=== PATIENT | female | born 1950 | race Caucasian/White ===

== ENCOUNTER 2017-02-22 02:11 | Outpatient (CLI) | payer MEDICARE, OTHER | END 2017-02-22 02:12 | disposition critical access hospital (66) | LOC: EMS 02:11 | PROVIDERS: ATTEND Surgery | DX: R06.02 Shortness of breath (principal) | CPT/HCPCS: A0425; A0427 ==

== ENCOUNTER 2017-02-22 02:26 | Inpatient (IN) | payer MEDICARE, OTHER ==
[2017-02-22] MEDS ORDERED: MAGNESIUM SULFATE 2 GRAM 2 GM/50 ML BAG IV ONE ×2 (02:35→04:49)
[2017-02-22] MEDS ORDERED: SODIUM CHLORIDE 0.9% 500 ML IV ONE (02:37)
[2017-02-22] MEDS ORDERED: IPRATROPIUM/ALBUTEROL 3 ML NEB INH STA (02:37)
[2017-02-22 02:59] LABS: BASOPHILS # (AUTO) 0.1 10^3/uL (0.0-0.1); BASOPHILS % (AUTO) 0.6 %; EOSINOPHILS # (AUTO) 0.2 10^3/uL (0.0-0.7); EOSINOPHILS % (AUTO) 1.7 %; HCT - HEMATOCRIT 34.4 % (37.0-47.0); HGB - HEMOGLOBIN 11.5 g/dL (12.0-16.0); LYMPHOCYTES # (AUTO) 1.5 10^3/uL (1.5-3.5); LYMPHOCYTES % (AUTO) 15.2 %; MEAN CORPUSCULAR HEMOGLOBIN 30.3 pg (27.0-31.0); MEAN CORPUSCULAR HGB CONC 33.3 g/dL (32.0-36.0); MEAN CORPUSCULAR VOLUME 91.1 fL (81.0-99.0); MEAN PLATELET VOLUME 7.7 fL (7.9-10.8); MONOCYTES # (AUTO) 0.7 10^3/uL (0.0-1.0); MONOCYTES % (AUTO) 6.7 %; NEUTROPHILS # (AUTO) 7.6 10^3/uL (1.5-6.6); NEUTROPHILS % (AUTO) 75.8 %; NUCLEATED RED BLOOD CELLS AUTO 0.1 /100WBC; RED BLOOD COUNT 3.78 10^6/uL (4.20-5.40); RED CELL DISTRIBUTION WIDTH 15.1 % (12.0-15.0)
[2017-02-22 03:06] LABS: INR 1.2 (0.8-1.2); PT - PROTHROMBIN TIME 13.6 secs (9.9-12.6)
[2017-02-22 03:08] LABS: D-DIMER 546.9 ng/mL (200.0-255.0)
[2017-02-22 03:10] LABS: ALBUMIN/GLOBULIN RATIO 1.1 (1.0-2.2); BILIRUBIN,TOTAL 0.7 mg/dL (0.2-1.0); CALCIUM 8.6 mg/dL (8.5-10.3); CREATININE 0.4 mg/dL (0.4-1.0); POTASSIUM 2.6 mmol/L (3.5-5.0); TOTAL PROTEIN 7.5 g/dL (6.7-8.2)
[2017-02-22 03:13] LABS: PARTIAL THROMBOPLASTIN TIME 26.7 secs (24.9-33.3)
[2017-02-22] MEDS ORDERED: FUROSEMIDE 40 MG/4 ML VIAL IVP STA (03:18)
[2017-02-22] MEDS ORDERED: POTASSIUM CHLOR 20 MEQ/100 ML 20 MEQ/100 ML BAG IV ONE (03:23)
--- NOTE | 2017-02-22 03:25 | XRAY Preliminary Report ---
Exam: XR Chest 1 View IMPRESSION: 1. Moderate CHF pattern, with progression from the prior exam. 2. Additional right perihilar opacity, probably confluent pulmonary edema. Infection difficult to exc lude with certainty. [facility] SITE ID: [id number]
[2017-02-22] MEDS ORDERED: FUROSEMIDE 40 MG/4 ML VIAL ONE (03:28)
[2017-02-22] MEDS ORDERED: POTASSIUM CHLOR 10 MEQ/100 ML 10 MEQ/100 ML BAG IV ONE ×3 (03:34→04:49)
--- NOTE | 2017-02-22 03:36 | XRAY Report ---
EXAM: CHEST RADIOGRAPHY EXAM DATE: 02/22/2017 02:51 AM. CLINICAL HISTORY: Shortness of breath, nonproductive cough for 5 days. COMPARISON: 02/05/2017, 02/06/2017. TECHNIQUE: 1 view. FINDINGS: Lungs/Pleura: Relative diffuse interstitial abnormality with progression from the prior exam. Small a mount of fluid tracking within the right minor fissure. Right perihilar and basilar airspace disease. Medium-sized left-sided pleural effusion also tracking laterally. Moderate biapical pleural thickeni ng/scarring. Mediastinum: New moderate enlargement of the cardiac silhouette. Other: None. IMPRESSION: 1. Moderate CHF pattern, with progression from the prior exam. 2. Additional right perihilar opacity, probably confluent pulmonary edema. Infection difficult to exc lude with certainty. [facility] Referring Provider Line: [phone] SITE ID: [id number]
--- NOTE | 2017-02-22 03:40 | ED Physician Documentation ---
PD HPI DYSPNEA - Stated complaint Stated Complaint: SOA - Chief complaint Chief Complaint: Resp - History obtained from History obtained from: Patient, EMS - History of Present Illness Timing - onset: How many days ago (2) Timing - details: Gradual onset, Still present Inciting event(s): Exercise Improved by: O2, Inhaler/neb Worsened by: Exertion, Laying flat Associated symptoms: Cough, Diaphoresis. No: Fever, Wheezing, Chest pain / discomfort, Anxiety Similar symptoms before: Work up / diagnostics, Treatment Recently seen: Emergency Dept, Admitted - Additional information Additional information: Patient is a 66 year old female with a history of copd who was recently diagnosed with chf who is presenting to the emergency department for shortness of breath. According to patient and ems patient was admitted a few weeks ago and spent a couple of days in the hospital. patient states that for the last few days she has been feeling more and more short of breath. patient states that this afternoon she over exerted herself and she has not been able to catch her breath. Review of Systems Constitutional: denies: Fever, Chills Eyes: denies: Decreased vision, Photophobia Ears: reports: Reviewed and negative Nose: denies: Congestion, Epistaxis Throat: denies: Sore throat Cardiac: reports: Pedal edema. denies: Chest pain / pressure, Palpitations Respiratory: reports: Dyspnea. denies: Cough, Wheezing GI: denies: Nausea, Vomiting : denies: Dysuria, Frequency, Hesitancy Skin: denies: Rash, Lesions Musculoskeletal: reports: Extremity swelling. denies: Extremity pain Neurologic: denies: Generalized weakness, Focal weakness, Numbness Psychiatric: denies: Depressed, Suicidal Immunocompromised: denies: Immunocompromised PD PAST MEDICAL HISTORY - Past Medical History Past Medical History: Yes Cardiovascular: Congestive heart failure Respiratory: Asthma, COPD Endocrine/Autoimmune: None GI: GERD, Other : Frequency HEENT: Other Psych: Depression, Anxiety Musculoskeletal: None Derm: None - Past Surgical History Past Surgical History: Yes General: Other HEENT: Tonsil/Adenoidectomy - Present Medications Home Medications: Ambulatory Orders Medication Instructions Recorded Confirmed Amitriptyline HCl 100 mg PO DAILY 09/26/15 02/06/17 Sucralfate 1 g PO QID 09/26/15 02/06/17 Venlafaxine HCl [Venlafaxine HCl 225 mg PO DAILY 09/26/15 02/06/17 ER] Fluticasone/Salmeterol [Advair 1 each IH BID #1 disk.w.dev 12/19/15 02/06/17 250-50 Diskus] Fluticasone/Salmeterol [Advair 1 puffs PO DAILY 02/06/17 02/06/17 250-50 Diskus] Potassium Gluconate 595 mg PO PRN PRN 02/06/17 02/06/17 Alprazolam [Xanax] 0.25 mg PO QPM #10 tablet 02/08/17 Budesonide [Pulmicort] 0.5 mg INH RTBID neb 02/08/17 Cholecalciferol [Vitamin D3] 5,000 unit PO BID #60 capsule 02/08/17 Magnesium Oxide [Magnesium] 400 mg PO BID #60 capsule 02/08/17 Multivit with Calcium,Iron,Min 1 each PO DAILY #30 tablet 02/08/17 [Multiple Vitamins For Women] Saccharomyces Boulardii [Florastor] 500 mg PO BID #60 capsule 02/08/17 Ubidecarenone/Vitamin E Mixed 1 each PO BID #60 capsule 02/08/17 [Fzy50-Qei E 100 mg-10 Unit Sfg] - Allergies Allergies/Adverse Reactions: Allergies Allergy/AdvReac Type Severity Reaction Status Date / Time erythromycin base Allergy Cramps Verified 02/22/17 02:30 Penicillins Allergy Respiratory Verified 02/22/17 02:30 Sulfa (Sulfonamide Allergy Respiratory Verified 02/22/17 02:30 Antibiotics) - Social History Does the pt smoke?: No Smoking Status: Former smoker Does the pt drink ETOH?: Yes Does the pt have substance abuse?: No - Immunizations Immunizations are current?: Yes - POLST Patient has POLST: No PD ED PE NORMAL - Vitals Vital signs reviewed: Yes - General General: Alert and oriented X 3 - HEENT HEENT: Atraumatic, PERRL, Pharynx benign - Neck Neck: Supple, no meningeal sign - Abdomen Abdomen: Soft, Non tender, Non distended - Derm Derm: Normal color, Warm and dry, No rash - Neuro Neuro: Alert and oriented X 3, No motor deficit, No sensory deficit, Normal speech - Psych Psych: Normal mood, Normal affect PD ED PE EXPANDED - General General: Alert, In distress - HEENT HEENT: Moist mucous membranes - Neck Neck: JVD present - Cardiac Cardiac: Tachy - Respiratory Respiratory: Labored, Accessory mm use, Retractions. No: Wheezing - Extremities Extremities: Pedal edema bilateral Results - Vitals Vitals: Vital Signs - 24 hr 02/22/17 02/22/17 02/22/17 02:26 02:42 02:47 Temperature 37.1 C Heart Rate 160 H 128 H 130 H Respiratory 32 H 20 34 H Rate Blood Pressure 151/95 H 149/76 H O2 Saturation 95 100 02/22/17 02/22/17 02/22/17 02:59 03:06 04:00 Temperature Heart Rate 132 H 137 H 124 H Respiratory 32 H 29 H 24 Rate Blood Pressure 152/67 H 138/96 H 141/69 H O2 Saturation 99 97 96 Oxygen O2 Source Nasal cannula - EKG (time done) 0242 Rate: Rate (enter#) (158) Rhythm: Sinus tachycardia QRS: LVH Ischemia: ST depression Compare to prior EKG: Other (increased rate from previous) - Labs Labs: Laboratory Tests 02/22/17 02/22/17 02/22/17 02:52 02:52 02:52 WBC 10.0 RBC 3.78 L Hgb 11.5 L Hct 34.4 L MCV 91.1 MCH 30.3 MCHC 33.3 RDW 15.1 H Plt Count 398 MPV 7.7 L Neut # 7.6 H Lymph # 1.5 [place] # 0.7 Eos # 0.2 Baso # 0.1 Absolute Nucleated RBC 0.01 Nucleated RBC % 0.1 PT 13.6 H INR 1.2 APTT 26.7 D-Dimer 546.9 H Sodium 138 Potassium 2.6 L Chloride 100 L Carbon Dioxide 26 Anion Gap 12.0 BUN 8 Creatinine 0.4 Estimated GFR (MDRD) 160 Glucose 134 H Calcium 8.6 Total Bilirubin 0.7 AST 29 ALT 16 Alkaline Phosphatase 177 H Troponin I B-Natriuretic Peptide Total Protein 7.5 Albumin 3.9 Globulin 3.6 Albumin/Globulin Ratio 1.1 Lipase 18 L TSH Urine Color Urine Clarity Urine pH Ur Specific [place] Urine Protein Urine Glucose (UA) Urine Ketones Urine Occult Blood Urine Nitrite Urine Bilirubin Urine Urobilinogen Ur Leukocyte Esterase Ur Microscopic Review Urine Culture Comments 02/22/17 02/22/17 02/22/17 02:52 02:52 02:52 WBC RBC Hgb Hct MCV MCH MCHC RDW Plt Count MPV Neut # Lymph # [place] # Eos # Baso # Absolute Nucleated RBC Nucleated RBC % PT INR APTT D-Dimer Sodium Potassium Chloride Carbon Dioxide Anion Gap BUN Creatinine Estimated GFR (MDRD) Glucose Calcium Total Bilirubin AST ALT Alkaline Phosphatase Troponin I < 0.04 B-Natriuretic Peptide 889 H Total Protein Albumin Globulin Albumin/Globulin Ratio Lipase TSH 1.99 Urine Color Urine Clarity Urine pH Ur Specific [place] Urine Protein Urine Glucose (UA) Urine Ketones Urine Occult Blood Urine Nitrite Urine Bilirubin Urine Urobilinogen Ur Leukocyte Esterase Ur Microscopic Review Urine Culture Comments 02/22/17 03:40 WBC RBC Hgb Hct MCV MCH MCHC RDW Plt Count MPV Neut # Lymph # [place] # Eos # Baso # Absolute Nucleated RBC Nucleated RBC % PT INR APTT D-Dimer Sodium Potassium Chloride Carbon Dioxide Anion Gap BUN Creatinine Estimated GFR (MDRD) Glucose Calcium Total Bilirubin AST ALT Alkaline Phosphatase Troponin I B-Natriuretic Peptide Total Protein Albumin Globulin Albumin/Globulin Ratio Lipase TSH Urine Color YELLOW Urine Clarity CLEAR Urine pH 6.0 Ur Specific [place] 1.010 Urine Protein NEGATIVE Urine Glucose (UA) NEGATIVE Urine Ketones TRACE Urine Occult Blood SMALL H Urine Nitrite NEGATIVE Urine Bilirubin NEGATIVE Urine Urobilinogen 0.2 (NORMAL) Ur Leukocyte Esterase TRACE H Ur Microscopic Review INDICATED Urine Culture Comments Not Reportable - Rads (name of study) chest x-ray Radiology: Final report received (moderate chf pattern, with progression from prior exam) PD MEDICAL DECISION MAKING - ED course Complexity details: reviewed old records, reviewed results, re-evaluated patient , considered differential, d/w patient ED course: Patient was seen and examined at bedside. patient was originally treated with additional duonebs and magnesium. Patient was still short of breath with minimal wheezing. ekg was performed and showed sinus tach at 158. Patient's heart rate improved as her oxygenation improved. chest x-ray was performed and was consistent with chf. Patient was treated with 40mg IV lasix. Bipap and abg were ordered. Hospitalist was contacted and the case was discussed with her. Patient was admitted for acute chf exacerbation. - Critical Care Time(min): 30 Time Includes: Direct patient care, Review records, Reassess patient, Document care Data interpretation: Labs, Pulse ox, ABG, CXR, Prior EKG, Cardiac output Departure - Departure Disposition: [address] [facility] DC/Xfer Clinical Impression: Hypokalemia due to loss of potassium, CHF exacerbation Condition: Serious
[2017-02-22 03:59] LABS: BILIRUBIN,URINE NEGATIVE (NEGATIVE)
[2017-02-22 04:01] LABS: UA w/ MICROSCOPIC CHARGE YES
[2017-02-22 04:06] LABS: UR CULTURE IF IND INDICATED; WBC,URINE 0-3 /HPF (0-5)
[2017-02-22] MEDS ORDERED: ONDANSETRON 4 MG/2 ML VIAL IVP PRN (04:35)
[2017-02-22] MEDS ORDERED: IBUPROFEN 600 MG TABLET PO PRN (04:35)
[2017-02-22] MEDS ORDERED: CIPROFLOXACIN 400 MG/200 ML 200 ML IV SCH (05:00)
[2017-02-22] MEDS ORDERED: POTASSIUM CHLORIDE 20 MEQ TABLET PO ONE (05:30)
[2017-02-22] MEDS: FUROSEMIDE 20 MG/2 ML VIAL IVP SCH ×2 (05:46→13:07)
[2017-02-22] MEDS: SODIUM CHLORIDE FLUSH 0.9% 10 ML SYRINGE IVP SCH ×3 (05:49→21:01)
[2017-02-22 06:27] LABS: HCT - HEMATOCRIT 34.9 % (37.0-47.0); HGB - HEMOGLOBIN 11.5 g/dL (12.0-16.0); MEAN CORPUSCULAR HEMOGLOBIN 30.2 pg (27.0-31.0); MEAN CORPUSCULAR HGB CONC 32.9 g/dL (32.0-36.0); MEAN CORPUSCULAR VOLUME 91.5 fL (81.0-99.0); MEAN PLATELET VOLUME 8.3 fL (7.9-10.8); RED BLOOD COUNT 3.81 10^6/uL (4.20-5.40); WHITE BLOOD COUNT 11.9 x10^3/uL (4.8-10.8)
[2017-02-22 06:39] LABS: ALBUMIN/GLOBULIN RATIO 1.2 (1.0-2.2); BILIRUBIN,TOTAL 0.9 mg/dL (0.2-1.0); CALCIUM 8.5 mg/dL (8.5-10.3); CREATININE 0.6 mg/dL (0.4-1.0); TOTAL PROTEIN 7.6 g/dL (6.7-8.2)
--- NOTE | 2017-02-22 06:58 | HISTORY & PHYSICAL EXAMINATION ---
DATE OF ADMISSION: 02/22/2017 Her CODE STATUS IS FULL CODE. Her PCP is Halle Christine. There were no limitations on her exam. Her medical records were reviewed. The source of information was the patient. CHIEF COMPLAINT: Shortness of breath. HISTORY OF PRESENT ILLNESS: The patient, a 66-year-old white female, began having shortness of breath at 3 p.m. today; she had some chest discomfort. She had no nausea or vomiting. She noticed that she had puffy feet and puffy hands. DRUG ALLERGIES: 1. PENICILLIN. 2. SULFA. 3. ERYTHROMYCIN. HOME MEDICATIONS: 1. Alprazolam 0.25 mg p.o. at night. 2. Amitriptyline 100 mg p.o. every day. 3. Budesonide 0.5/2 mL nebs b.i.d. 4. Cholecalciferol 5000 units p.o. twice a day. 5. Fluconazole/salmeterol 1 puff every day. 6. Magnesium oxide 400 mg p.o. twice a day. 7. Multivitamin 1 tab p.o. every day. 8. Potassium gluconate 99 mg p.o. p.r.n. 9. Saccharomyces boulardii 500 mg p.o. twice a day. 10. Sucralfate 1 gram p.o. 4 times a day. 11. Ubidecarenone/vitamin E mixed 1 capsule p.o. twice a day. 12. Venlafaxine 225 mg p.o. every day. PAST MEDICAL HISTORY: COPD, irritable bowel syndrome, achalasia, gastroesophageal reflux disease, erythema nodosum, anxiety, depression, a history of pneumonia and osteoporosis. PAST SURGICAL HISTORY: She had 3 esophageal surgeries to correct the achalasia of which one of the surgeries was a Heller myotomy and appendectomy, a tonsillectomy and a splenectomy. FAMILY HISTORY: She is adopted. SOCIAL HISTORY: She is single. She has 1 child. She worked in [employer] and retired. She lives at home, and she lives alone. She smoked half pack per day for 13 years and quit 12 years ago. She drinks alcohol socially. She uses no recreational drugs. REVIEW OF SYSTEMS: RESPIRATORY: She has shortness of breath and a nonproductive cough. HEART: Palpitations. ABDOMEN: No nausea, no vomiting, no bloating, no diarrhea, no constipation. URINARY SYSTEM: Burning urine. HEAD: Frontal headaches. EYES: No blurred vision. EARS: No ear pain, no tinnitus. NOSE: No runny nose. THROAT: No redness or pain. MUSCULOSKELETAL: Proximal muscle weakness and lower back pain. JOINTS: Rib pain. NEUROLOGICAL: No dementia. No aphasias and no limb weakness. She has had a 4 pound weight loss this year. She has weakness and fatigue and she has no fever. PHYSICAL EXAMINATION: VITAL SIGNS: Temperature of 37.3 degrees Celsius, a pulse of 124, respiratory rate of 24, blood pressure of 141/69, and O2 saturation of 98% on 2 liters nasal cannula. GENERAL: She is cachectic, alert and cooperative. HEENT: Head is atraumatic, normocephalic. Eyes are PERRLA, EOMI. NECK: Supple. No JVD, no bruits, no thyroid enlargement. No adenopathy. HEART: Tachycardia with a soft murmur at the apex. LUNGS: Slight rales at the bases and decreased inspiratory effort. ABDOMEN: Positive for bowel sounds, soft, nontender. No rebound, no guarding. EXTREMITIES: Warm. She has +1 pitting edema. She moves all 4 extremities. NEUROLOGIC: Cranial nerves 2-12 are intact. She is oriented and she answers all questions appropriately and moves all 4 extremities. LABORATORY DATA: Her sodium is 138, potassium is 2.6, chloride is 100, bicarbonate is 26, BUN 8, creatinine 0.4, glucose is 134. Alkaline phosphatase is 177. White blood cells are 10, hemoglobin is 11.5, hematocrit is 34.4, glucose is 398. RDW is 15.1. PT is 13.6, PTT is 26.7. INR is 1.2. D-dimer is 546.9. Anion gap is 12. First troponin is less than 0.04. BNP is 889. Albumin is 3.9, globulin is 3.6, lipase is 18. TSH is 1.9. The UA is clear. There is a positive urine occult blood, a positive urine leukocyte esterase. Her glomerular filtration rate is 160. Her AST is 29 and her ALT is 16. Her EKG shows SVT and left ventricular hypertrophy. RADIOLOGY FINDINGS: Chest x-ray shows moderate CHF pattern with progression from the prior exam. additional right perihilar opacity probably confluent pulmonary edema, infection difficult to exclude with certainty. Her echocardiogram of 02/06/2017 showed an ejection fraction of 25% to 30%, left ventricular hypertrophy, right ventricle is normal in size and function. Left atrium severely increased in left atrial volume index. There is mild to moderate mitral regurgitation, mild mitral annular calcification, aortic valve is trileaflet and there is mild aortic valve sclerosis and the right atrial size is normal. DIAGNOSES: Acute systolic congestive heart failure. It will be treated with IV Lasix, p.o. losartan and p.o. Coreg. Her echocardiogram was completed on 2016 with an ejection fraction of 25% to 30%. Her hypokalemia will be treated with potassium chloride and spironolactone. Her UTI will be treated with IV Cipro. Her anxiety/depression will be treated with Effexor, alprazolam and amitriptyline. Her COPD will be treated with DuoNeb and Pulmicort. Her rib pain will be treated with Motrin. Her GERD resulting from history of achalasia will be treated with IV Protonix and Carafate. Hypomagnesemia will be treated with IV magnesium sulfate and magnesium oxide. Osteoporosis will be treated with Cholecalciferol. She will be on IV Zofran for p.r.n. nausea and she will get a chewable aspirin. She is receiving subcutaneously Lovenox for DVT prophylaxis and the IV Protonix will prevent stress ulcers. Her anticipated length of stay is 3-4 days. She does have VTE/DVT prophylaxis ordered from admit, which is covered with subcutaneously Lovenox. JOB #: [id number] EXT JOB #:[id number] CORRINE
[2017-02-22] MEDS: PANTOPRAZOLE 40 MG VIAL IVP SCH (07:02)
[2017-02-22] MEDS: SUCRALFATE 1 GM/10 ML UDC PO SCH ×4 (07:02→21:00)
[2017-02-22] MEDS: SODIUM CHLORIDE FLUSH 0.9% 10 ML SYRINGE IVP PRN ×2 (07:02→13:08)
[2017-02-22] MEDS ORDERED: SODIUM CHLORIDE FLUSH 0.9% 10 ML SYRINGE IVP ONE (08:13)
[2017-02-22] MEDS: ASPIRIN CHEW 81 MG TABLET PO SCH (08:17)
[2017-02-22] MEDS: MULTIVITAMIN W/MINERALS TABLET PO SCH (08:17)
[2017-02-22] MEDS: SPIRONOLACTONE 25 MG TABLET PO SCH (08:17)
[2017-02-22] MEDS: ENOXAPARIN 40 MG/0.4 ML SYRINGE SUBQ SCH (08:17)
[2017-02-22] MEDS: CARVEDILOL 3.125 MG TABLET PO SCH ×2 (08:17→20:57)
[2017-02-22] MEDS: AMITRIPTYLINE 25 MG TABLET PO SCH (08:18)
[2017-02-22] MEDS: MAGNESIUM OXIDE 400 MG TABLET PO SCH ×2 (08:18→16:47)
[2017-02-22] MEDS: LOSARTAN 50 MG TABLET PO SCH (08:18)
[2017-02-22] MEDS: SACCHAROMYCES BOULARDII 250 MG CAPSULE PO SCH ×2 (08:18→20:56)
[2017-02-22] MEDS: POLYETHYLENE GLYCOL 3350 17 GM PACKET PO SCH (08:19)
[2017-02-22] MEDS: CHOLECALCIFEROL 5,000 UNIT CAPSULE PO SCH ×2 (08:19→20:57)
[2017-02-22] MEDS ORDERED: MULTIVIT WITH CALCIUM IRON MIN PO SCH (09:00)
[2017-02-22] MEDS ORDERED: NON FORMULARY MED (Amitriptyline Hcl [Amitriptyline Hcl] 100 MG) PO SCH (09:00)
[2017-02-22] MEDS ORDERED: MAGNESIUM OXIDE 400 MG PO SCH (09:00)
[2017-02-22] MEDS ORDERED: VENLAFAXINE HCL 225 MG PO SCH (09:00)
[2017-02-22] MEDS ORDERED: SUCRALFATE 1 GM PO SCH (09:00)
[2017-02-22] MEDS ORDERED: IOPAMIDOL-300 100 ML VIAL ONE (09:09)
[2017-02-22] MEDS ORDERED: IOPAMIDOL-300 100 ML VIAL IVP ONE ×2 (09:29)
[2017-02-22] MEDS: ACETAMINOPHEN 325 MG TABLET PO PRN ×2 (09:59→20:57)
[2017-02-22] MEDS: VENLAFAXINE ER 75 MG CAPSULE PO SCH (09:59)
--- NOTE | 2017-02-22 10:19 | CT Preliminary Report ---
Exam: CT Chest Angio (PE) IMPRESSION: 1. Worsening pulmonary edema. 2. Airspace opacification in the superior right lower lobe could represent atelectasis or infection. [facility] SITE ID: [id number]
--- NOTE | 2017-02-22 10:22 | CT Report ---
EXAM: CT ANGIOGRAM CHEST EXAM DATE: 02/22/2017 09:37 AM. CLINICAL HISTORY: Elevated d-dimer and shortness of breath COMPARISON: 02/06/2017. TECHNIQUE: Routine helical imaging was performed through the chest in the pulmonary arterial phase. I V Contrast: 100 mL Isovue-300. Reconstructions: Coronal 3-D MIP reconstructions.Sagittal and coronal. In accordance with CT protocol optimization, one or more of the following dose reduction techniques w ere utilized for this exam: automated exposure control, adjustment of mA and/or KV based on patient s ize, or use of iterative reconstructive technique. FINDINGS: Pulmonary Arteries: Diagnostic quality: Adequate through the segmental arteries. No evidence for acute or chronic pulmona ry emboli. Lungs/Pleura: Biapical scar persists. Pulmonary edema is now moderate. There is some airspace opacifi cation in the superior portion of the right lower lobe that could represent atelectasis or infection. No pleural effusion. No pneumothorax. Mediastinum: Normal. No cardiac enlargement or adenopathy. Thoracic Aorta: Unremarkable. Upper Abdomen: Unremarkable. Other: The patient has healed fractures of bilateral ribs. A severe scoliosis is present. Prominent d egenerative changes in the visualized spine. There is an old 2 column fracture of L1. IMPRESSION: 1. Worsening pulmonary edema. 2. Airspace opacification in the superior right lower lobe could represent atelectasis or infection. [facility] Referring Provider Line: [phone] SITE ID: [id number]
[2017-02-22] MEDS: IPRATROPIUM/ALBUTEROL 3 ML NEB INH PRN ×2 (11:05→15:15)
[2017-02-22] MEDS: BUDESONIDE 0.5 MG/2 ML NEB INH SCH ×2 (11:05→19:10)
--- NOTE | 2017-02-22 14:29 | PROVIDER PROGRESS NOTE ---
Subjective - Prog Note Date Prog Note Date: 02/22/17 - Subjective Pt reports feeling: Improved Subjective: pt report she fee much better for breathing. no chest pain, fever, chill, cough. Current Medications - Current Medications Current Medications: Active Medications Acetaminophen (Tylenol) 650 mg PO Q4HR PRN PRN Reason: Pain or Fever > 38C (100.4F) Last Admin: 02/22/17 09:59 Dose: 650 mg Albuterol/Ipratropium (Duoneb) 3 ml INH RTQID PRN PRN Reason: Shortness of Air/Wheezing Last Admin: 02/22/17 11:05 Dose: 3 ml Alprazolam (Xanax) 0.25 mg PO QPM [facility] Amitriptyline HCl (Elavil) 100 mg PO DAILY [facility] Last Admin: 02/22/17 08:18 Dose: 100 mg Aspirin ([facility] Jeremy Aspirin) 81 mg PO DAILY [facility] Last Admin: 02/22/17 08:17 Dose: 81 mg Budesonide (Pulmicort) 0.5 mg INH RTBID [facility] Last Admin: 02/22/17 11:05 Dose: 0.5 mg Carvedilol (Coreg) 6.25 mg PO BID [facility] Last Admin: 02/22/17 08:17 Dose: 6.25 mg Cholecalciferol (Vitamin D3) 5,000 unit PO BID [facility] Last Admin: 02/22/17 08:19 Dose: 5,000 unit Enoxaparin Sodium (Lovenox) 40 mg SUBQ DAILY [facility] Last Admin: 02/22/17 08:17 Dose: 40 mg Formoterol Fumarate (Perforomist) 20 mcg INH RTBID [facility] Furosemide (Lasix Inj 20mg Vial) 20 mg IVP BIDDIURETIC [facility] Last Admin: 02/22/17 13:07 Dose: 20 mg Ciprofloxacin (Cipro 400 Mg/200 Ml) 200 mls @ 200 mls/hr IV Q12H [facility] Last Infusion: 02/22/17 06:50 Dose: Infused Iopamidol (Isovue-300) 100 ml IVP ONCE ONE Stop: 02/22/17 09:30 Last Admin: 02/22/17 09:30 Dose: 71 ml Losartan Potassium (Cozaar) 50 mg PO DAILY [facility] Last Admin: 02/22/17 08:18 Dose: 50 mg Magnesium Oxide (Mag Ox) 400 mg PO BIDWM [facility] Last Admin: 02/22/17 08:18 Dose: 400 mg Multivitamins/Minerals (Theragran M) 1 tab PO DAILYWM [facility] Last Admin: 02/22/17 08:17 Dose: 1 tab Ondansetron HCl (Zofran Inj) 4 mg IVP Q6HR PRN PRN Reason: Nausea / Vomiting Pantoprazole Sodium (Protonix) 40 mg IVP QDAC [facility] Last Admin: 02/22/17 07:02 Dose: 40 mg Polyethylene Glycol (Miralax) 17 gm PO DAILY [facility] Last Admin: 02/22/17 08:19 Dose: Not Given Saccharomyces Boulardii (Florastor) 500 mg PO BID [facility] Last Admin: 02/22/17 08:18 Dose: 500 mg Sodium Chloride (Normal Saline Flush 0.9%) 10 ml IVP PRN PRN PRN Reason: NEEDED PER PROVIDER ORDERS Last Admin: 02/22/17 13:08 Dose: 10 ml Sodium Chloride (Normal Saline Flush 0.9%) 10 ml IVP Q8HR [facility] Last Admin: 02/22/17 13:07 Dose: 10 ml Spironolactone (Aldactone) 25 mg PO DAILY [facility] Last Admin: 02/22/17 08:17 Dose: 25 mg Sucralfate (Carafate) 1 gm PO 0700,1100,1600,2200 [facility] Last Admin: 02/22/17 12:01 Dose: 1 gm Venlafaxine HCl (Effexor Er) 225 mg PO DAILY [facility] Last Admin: 02/22/17 09:59 Dose: 225 mg Amitriptyline HCl 100 mg PO DAILY 09/26/15 Sucralfate 1 g PO QID 09/26/15 Venlafaxine HCl [Venlafaxine HCl ER] 225 mg PO DAILY 09/26/15 Fluticasone/Salmeterol [Advair 250-50 Diskus] 1 puffs PO DAILY 02/06/17 Potassium Gluconate 595 mg PO PRN PRN 02/06/17 Objective - Vital Signs/Intake & Output Reviewed Vital Signs: Yes Vital Signs: Vital Signs x48h Temp Pulse Pulse Resp BP Pulse Ox 02/22/17 11:56 36.3 C L 92 16 125/63 98 02/22/17 11:05 96 18 02/22/17 08:29 37.3 C 103 H 16 127/72 97 02/22/17 06:58 37.2 C 120 H 19 153/78 H 100 Intake & Output: Intake & Output 02/19/17 02/20/17 02/21/17 02/22/17 23:59 23:59 23:59 23:59 Intake Total 1642.5 Output Total 1000 Balance 642.5 - Objective General Appearance: positive: No acute distress, Alert. negative: Lethargic Eyes Bilateral: positive: Normal inspection, PERRL, EOMI, No lid inflammation, Conjunctivae nml ENT: positive: ENT inspection nml, Pharynx nml, No signs of dehydration. negative: Purulent nasal drainage, Pharyngeal erythema, Oral lesions Neck: positive: Nml inspection, Thyroid nml, No JVD, Trachea midline. negative : Thyromegaly, Lymphadenopathy (R), Lymphadenopathy (L), Stiff neck, Carotid bruit, Swelling/bruising, Tracheal deviation Respiratory: positive: Chest non-tender, No respiratory distress, Breath sounds nml. negative: Wheezes, Rales, Rhonchi Cardiovascular: positive: Regular rate & rhythm, No murmur, No gallop. negative : Irregularly irregular, Extrasystoles, Tachycardia, Bradycardia, Systolic murmur, Diastolic murmur Peripheral Pulses: 2+ Radial (R), 2+ Radial (L), 2+ Dorsalis pedis (R), 2+ Dorsalis pedis (L) Abdomen: positive: Non-tender, No organomegaly, Nml bowel sounds, No distention. negative: Tenderness, Guarding, Rebound Back: positive: Nml inspection. negative: CVA tenderness (R), CVA tenderness (L ) Skin: positive: Color nml, No rash, Warm, Dry. negative: Cyanosis, Diaphoresis , Skin rash Extremities: positive: Non-tender, Full ROM, Nml appearance. negative: Calf tenderness, Joint swelling, Aidan's sign/cords Neurologic/Psychiatric: positive: Oriented x3, Motor nml, Sensation nml, Mood/ affect nml. negative: Sensory loss, Facial droop, Slurred/abnml speech, Depressed mood/affect - Lab Results Fish Bones: 02/22/17 05:34 02/22/17 11:18 Other Labs: Lab Results x24hrs 02/22/17 02/22/17 02/22/17 Range/Units 11:18 05:34 05:34 WBC 11.9 H (4.8-10.8) x10^3/uL RBC 3.81 L (4.20-5.40) 10^6/uL Hgb 11.5 L (12.0-16.0) g/dL Hct 34.9 L (37.0-47.0) % MCV 91.5 (81.0-99.0) fL MCH 30.2 (27.0-31.0) pg MCHC 32.9 (32.0-36.0) g/dL RDW 15.0 (12.0-15.0) % Plt Count 376 (130-450) 10^3/uL MPV 8.3 (7.9-10.8) fL Sodium 139 (135-145) mmol/L Potassium 4.1 2.5 L* (3.5-5.0) mmol/L Chloride 99 L (101-111) mmol/L Carbon Dioxide 28 (21-32) mmol/L Anion Gap 12.0 (6-13) BUN 9 (6-20) mg/dL Creatinine 0.6 (0.4-1.0) mg/dL Estimated GFR (MDRD) 100 (>89) Glucose 239 H (70-100) mg/dL Calcium 8.5 (8.5-10.3) mg/dL Magnesium (1.7-2.8) mg/dL Total Bilirubin 0.9 (0.2-1.0) mg/dL AST 30 (10-42) IU/L ALT 16 (10-60) IU/L Alkaline Phosphatase 170 H (42-121) IU/L Total Protein 7.6 (6.7-8.2) g/dL Albumin 4.2 (3.2-5.5) g/dL Globulin 3.4 (2.1-4.2) g/dL Albumin/Globulin Ratio 1.2 (1.0-2.2) 02/22/17 Range/Units 05:34 WBC (4.8-10.8) x10^3/uL RBC (4.20-5.40) 10^6/uL Hgb (12.0-16.0) g/dL Hct (37.0-47.0) % MCV (81.0-99.0) fL MCH (27.0-31.0) pg MCHC (32.0-36.0) g/dL RDW (12.0-15.0) % Plt Count (130-450) 10^3/uL MPV (7.9-10.8) fL Sodium (135-145) mmol/L Potassium (3.5-5.0) mmol/L Chloride (101-111) mmol/L Carbon Dioxide (21-32) mmol/L Anion Gap (6-13) BUN (6-20) mg/dL Creatinine (0.4-1.0) mg/dL Estimated GFR (MDRD) (>89) Glucose (70-100) mg/dL Calcium (8.5-10.3) mg/dL Magnesium 2.4 (1.7-2.8) mg/dL Total Bilirubin (0.2-1.0) mg/dL AST (10-42) IU/L ALT (10-60) IU/L Alkaline Phosphatase (42-121) IU/L Total Protein (6.7-8.2) g/dL Albumin (3.2-5.5) g/dL Globulin (2.1-4.2) g/dL Albumin/Globulin Ratio (1.0-2.2) Assessment/Plan - Problem List (1) CHF exacerbation Impression: Pt had ECHO two weeks, it reveals EF is 25-30%, elevated BNP to 889, worsening pulmonary edema IV lasix continue home meds tele, vital, monitor daily lab, BNP monitor (2) Shortness of breath Impression: CTA and CXR all reveals worsen pulmonary edema, secondary to CHF exacerbation continue Lasix continue INH, pulmocor, and Duoneb, RT treatment supplement of O2, wane off (3) Pneumonia Impression: CTA reveals right lower lobe airspace or infiltration use Levaquin instead of Cipro for both pneumonia and UTI continue monitor with lab, vital, tele (4) Hypokalemia Impression: acute on chronic hypokalemia replacement of potassium recheck at 1100. it is normal now. asymptomatic, EKG PRN, now pt's HR is 92. (5) COPD (chronic obstructive pulmonary disease) Impression: treat with pulmicort and Duoneb, RT treatment O2 supplement, wane off gradually. Qualifiers: COPD type: COPD with acute lower respiratory infection Qualified Code(s): J44.0 - Chronic obstructive pulmonary disease with acute lower respiratory infection (6) Hx of gastroesophageal reflux (GERD) Impression: treat with carafate and Protonix (7) Anxiety Impression: resume home meds, effexor, alprazolam, amitriptyline.
[2017-02-22] MEDS: levoFLOXacin 500 MG/100 ML 500 MG/100 ML BAG IV SCH (16:47)
[2017-02-22 17:10] LABS: POTASSIUM 2.5 mmol/L (3.5-5.0)
[2017-02-22] MEDS ORDERED: FORMOTEROL FUMARATE NEB 20 MCG/2 ML INH SCH (19:00)
[2017-02-22] MEDS: FORMOTEROL FUMARATE NEB 20 MCG/2 ML INH SCH (19:10)
[2017-02-22] MEDS ORDERED: diphenhydrAMINE 25 MG CAPSULE PO PRN (20:27)
[2017-02-22] MEDS: ALPRAZolam 0.25 MG TABLET PO SCH (20:57)
[2017-02-23 06:09] LABS: BASOPHILS % (AUTO) 0.5 %; EOSINOPHILS # (AUTO) 0.1 10^3/uL (0.0-0.7); EOSINOPHILS % (AUTO) 0.8 %; HCT - HEMATOCRIT 32.8 % (37.0-47.0); HGB - HEMOGLOBIN 10.9 g/dL (12.0-16.0); LYMPHOCYTES # (AUTO) 2.2 10^3/uL (1.5-3.5); LYMPHOCYTES % (AUTO) 22.5 %; MEAN CORPUSCULAR HEMOGLOBIN 30.7 pg (27.0-31.0); MEAN CORPUSCULAR HGB CONC 33.1 g/dL (32.0-36.0); MEAN CORPUSCULAR VOLUME 92.6 fL (81.0-99.0); MEAN PLATELET VOLUME 8.3 fL (7.9-10.8); MONOCYTES # (AUTO) 0.7 10^3/uL (0.0-1.0); MONOCYTES % (AUTO) 6.8 %; NEUTROPHILS # (AUTO) 6.7 10^3/uL (1.5-6.6); NEUTROPHILS % (AUTO) 69.4 %; RED BLOOD COUNT 3.55 10^6/uL (4.20-5.40); RED CELL DISTRIBUTION WIDTH 15.1 % (12.0-15.0); UNCORRECTED WHITE BLOOD COUNT 9.7 x10^3/uL; WHITE BLOOD COUNT 9.7 x10^3/uL (4.8-10.8)
[2017-02-23] MEDS: FUROSEMIDE 20 MG/2 ML VIAL IVP SCH (06:21)
[2017-02-23] MEDS: SUCRALFATE 1 GM/10 ML UDC PO SCH ×4 (06:21→22:00)
[2017-02-23] MEDS: PANTOPRAZOLE 40 MG VIAL IVP SCH (06:21)
[2017-02-23] MEDS: SODIUM CHLORIDE FLUSH 0.9% 10 ML SYRINGE IVP PRN (06:22)
[2017-02-23] MEDS: SODIUM CHLORIDE FLUSH 0.9% 10 ML SYRINGE IVP SCH ×3 (06:22→19:40)
[2017-02-23 06:27] LABS: BILIRUBIN,TOTAL 0.7 mg/dL (0.2-1.0); CALCIUM 8.8 mg/dL (8.5-10.3); CREATININE 0.7 mg/dL (0.4-1.0); MAGNESIUM 2.5 mg/dL (1.7-2.8); POTASSIUM 3.9 mmol/L (3.5-5.0); TOTAL PROTEIN 6.8 g/dL (6.7-8.2)
[2017-02-23] MEDS: BUDESONIDE 0.5 MG/2 ML NEB INH SCH ×2 (07:35→20:35)
[2017-02-23] MEDS: FORMOTEROL FUMARATE NEB 20 MCG/2 ML INH SCH ×2 (07:35→20:36)
[2017-02-23] MEDS ORDERED: FUROSEMIDE 40 MG/4 ML VIAL IVP SCH (08:00)
[2017-02-23] MEDS: MAGNESIUM OXIDE 400 MG TABLET PO SCH ×2 (08:51→16:24)
[2017-02-23] MEDS: MULTIVITAMIN W/MINERALS TABLET PO SCH (08:52)
[2017-02-23] MEDS: AMITRIPTYLINE 25 MG TABLET PO SCH (08:52)
[2017-02-23] MEDS: SPIRONOLACTONE 25 MG TABLET PO SCH (08:52)
[2017-02-23] MEDS: ASPIRIN CHEW 81 MG TABLET PO SCH (08:52)
[2017-02-23] MEDS: CARVEDILOL 3.125 MG TABLET PO SCH ×2 (08:52→20:11)
[2017-02-23] MEDS: SACCHAROMYCES BOULARDII 250 MG CAPSULE PO SCH ×2 (08:52→20:11)
[2017-02-23] MEDS: POTASSIUM CHLORIDE 20 MEQ TABLET PO SCH (08:52)
[2017-02-23] MEDS: ENOXAPARIN 40 MG/0.4 ML SYRINGE SUBQ SCH (08:53)
[2017-02-23] MEDS: VENLAFAXINE ER 75 MG CAPSULE PO SCH (08:53)
[2017-02-23] MEDS: CHOLECALCIFEROL 5,000 UNIT CAPSULE PO SCH ×2 (08:53→20:12)
[2017-02-23] MEDS: LOSARTAN 50 MG TABLET PO SCH (08:54)
[2017-02-23] MEDS ORDERED: TEMAZEPAM 7.5 MG CAPSULE PO PRN (10:28)
--- NOTE | 2017-02-23 13:31 | PROVIDER PROGRESS NOTE ---
Subjective - Prog Note Date Prog Note Date: 02/23/17 - Subjective Pt reports feeling: Improved Subjective: pt report she feel better, no chest pain, palpitation. Current Medications - Current Medications Current Medications: Active Medications Acetaminophen (Tylenol) 650 mg PO Q4HR PRN PRN Reason: Pain or Fever > 38C (100.4F) Last Admin: 02/22/17 20:57 Dose: 650 mg Albuterol/Ipratropium (Duoneb) 3 ml INH RTQID PRN PRN Reason: Shortness of Air/Wheezing Last Admin: 02/22/17 15:15 Dose: 3 ml Alprazolam (Xanax) 0.25 mg PO QPM [facility] Last Admin: 02/22/17 20:57 Dose: 0.25 mg Amitriptyline HCl (Elavil) 100 mg PO DAILY [facility] Last Admin: 02/23/17 08:52 Dose: 100 mg Aspirin ([facility] Jeremy Aspirin) 81 mg PO DAILY [facility] Last Admin: 02/23/17 08:52 Dose: 81 mg Budesonide (Pulmicort) 0.5 mg INH RTBID [facility] Last Admin: 02/23/17 07:35 Dose: 0.5 mg Carvedilol (Coreg) 6.25 mg PO BID [facility] Last Admin: 02/23/17 08:52 Dose: 6.25 mg Cholecalciferol (Vitamin D3) 5,000 unit PO BID [facility] Last Admin: 02/23/17 08:53 Dose: 5,000 unit Diphenhydramine HCl (Benadryl) 25 mg PO QPM PRN PRN Reason: Insomnia Last Admin: 02/22/17 23:35 Dose: 25 mg Enoxaparin Sodium (Lovenox) 40 mg SUBQ DAILY [facility] Last Admin: 02/23/17 08:53 Dose: 40 mg Formoterol Fumarate (Perforomist) 20 mcg INH RTBID [facility] Last Admin: 02/23/17 07:35 Dose: 20 mcg Furosemide (Lasix Inj 40 Mg Vial) 40 mg IVP BIDDIURETIC [facility] Levofloxacin (Levaquin 500 Mg/100 Ml) 500 mg in 100 mls @ 100 mls/hr IV Q24H [facility] Last Infusion: 02/22/17 18:18 Dose: Infused Losartan Potassium (Cozaar) 50 mg PO DAILY [facility] Last Admin: 02/23/17 08:54 Dose: 50 mg Magnesium Oxide (Mag Ox) 400 mg PO BIDWM [facility] Last Admin: 02/23/17 08:51 Dose: 400 mg Multivitamins/Minerals (Theragran M) 1 tab PO DAILYWM [facility] Last Admin: 02/23/17 08:52 Dose: 1 tab Ondansetron HCl (Zofran Inj) 4 mg IVP Q6HR PRN PRN Reason: Nausea / Vomiting Pantoprazole Sodium (Protonix) 40 mg IVP QDAC [facility] Last Admin: 02/23/17 06:21 Dose: 40 mg Polyethylene Glycol (Miralax) 17 gm PO DAILY [facility] Last Admin: 02/22/17 08:19 Dose: Not Given Potassium Chloride (K-Dur) 20 meq PO DAILYWM [facility] Last Admin: 02/23/17 08:52 Dose: 20 meq Saccharomyces Boulardii (Florastor) 500 mg PO BID [facility] Last Admin: 02/23/17 08:52 Dose: 500 mg Sodium Chloride (Normal Saline Flush 0.9%) 10 ml IVP PRN PRN PRN Reason: NEEDED PER PROVIDER ORDERS Last Admin: 02/23/17 06:22 Dose: 10 ml Sodium Chloride (Normal Saline Flush 0.9%) 10 ml IVP Q8HR [facility] Last Admin: 02/23/17 06:22 Dose: 10 ml Spironolactone (Aldactone) 25 mg PO DAILY [facility] Last Admin: 02/23/17 08:52 Dose: 25 mg Sucralfate (Carafate) 1 gm PO 0700,1100,1600,2200 [facility] Last Admin: 02/23/17 06:21 Dose: 1 gm Temazepam (Restoril) 7.5 mg PO QPM PRN PRN Reason: Insomnia Venlafaxine HCl (Effexor Er) 225 mg PO DAILY [facility] Last Admin: 02/23/17 08:53 Dose: 225 mg Amitriptyline HCl 100 mg PO DAILY 09/26/15 Sucralfate 1 g PO ACHS 09/26/15 Venlafaxine HCl [Venlafaxine HCl ER] 225 mg PO DAILY 09/26/15 Potassium Gluconate 595 mg PO PRN PRN 02/06/17 Omeprazole [Omeprazole] 40 mg PO DAILY 02/22/17 Objective - Vital Signs/Intake & Output Reviewed Vital Signs: Yes Vital Signs: Vital Signs x48h Temp Pulse Pulse Resp BP Pulse Ox 02/23/17 09:33 36.5 C 91 18 96/67 95 02/23/17 07:37 94 16 02/23/17 05:43 37.1 C 94 16 122/70 95 Intake & Output: Intake & Output 02/20/17 02/21/17 02/22/17 02/23/17 23:59 23:59 23:59 23:59 Intake Total 1982.5 422 Output Total 1000 1600 Balance 982.5 -1178 - Objective General Appearance: positive: No acute distress, Alert. negative: Lethargic Eyes Bilateral: positive: Normal inspection, PERRL, EOMI, No lid inflammation, Conjunctivae nml ENT: positive: ENT inspection nml, Pharynx nml, No signs of dehydration. negative: Purulent nasal drainage, Pharyngeal erythema, Oral lesions Neck: positive: Nml inspection, Thyroid nml, Trachea midline. negative: Thyromegaly, Lymphadenopathy (R), Lymphadenopathy (L), Stiff neck, Swelling/ bruising, Tracheal deviation Respiratory: positive: Chest non-tender, No respiratory distress, Breath sounds nml. negative: Wheezes, Rales, Rhonchi Cardiovascular: positive: Regular rate & rhythm, No murmur, No gallop. negative : Irregularly irregular, Extrasystoles, Tachycardia, Bradycardia, Systolic murmur, Diastolic murmur Peripheral Pulses: 2+ Radial (R), 2+ Radial (L), 2+ Dorsalis pedis (R), 2+ Dorsalis pedis (L) Abdomen: positive: Non-tender, Nml bowel sounds, No distention. negative: Tenderness, Guarding, Rebound Back: positive: Nml inspection. negative: CVA tenderness (R), CVA tenderness (L ) Skin: positive: Color nml, No rash, Warm, Dry, Puncture wound. negative: Cyanosis, Diaphoresis, Pallor, Skin rash Extremities: positive: Non-tender, Full ROM, Nml appearance. negative: Calf tenderness, Aidan's sign/cords - Lab Results Fish Bones: 02/23/17 05:32 02/23/17 05:32 Other Labs: Lab Results x24hrs 02/23/17 02/23/17 02/23/17 Range/Units 05:32 05:32 05:32 WBC 9.7 (4.8-10.8) x10^3/uL RBC 3.55 L (4.20-5.40) 10^6/uL Hgb 10.9 L (12.0-16.0) g/dL Hct 32.8 L (37.0-47.0) % MCV 92.6 (81.0-99.0) fL MCH 30.7 (27.0-31.0) pg MCHC 33.1 (32.0-36.0) g/dL RDW 15.1 H (12.0-15.0) % Plt Count 386 (130-450) 10^3/uL MPV 8.3 (7.9-10.8) fL Neut # 6.7 H (1.5-6.6) 10^3/uL Lymph # 2.2 (1.5-3.5) 10^3/uL Stanley # 0.7 (0.0-1.0) 10^3/uL Eos # 0.1 (0.0-0.7) 10^3/uL Baso # 0.0 (0.0-0.1) 10^3/uL Absolute Nucleated RBC 0.00 x10^3/uL Nucleated RBC % 0.0 /100WBC Sodium 141 (135-145) mmol/L Potassium 3.9 (3.5-5.0) mmol/L Chloride 100 L (101-111) mmol/L Carbon Dioxide 33 H (21-32) mmol/L Anion Gap 8.0 (6-13) BUN 15 (6-20) mg/dL Creatinine 0.7 (0.4-1.0) mg/dL Estimated GFR (MDRD) 84 L (>89) Glucose 93 (70-100) mg/dL Calcium 8.8 (8.5-10.3) mg/dL Magnesium 2.5 (1.7-2.8) mg/dL Total Bilirubin 0.7 (0.2-1.0) mg/dL AST 24 (10-42) IU/L ALT 15 (10-60) IU/L Alkaline Phosphatase 137 H (42-121) IU/L B-Natriuretic Peptide 1255 H (5-100) pg/mL Total Protein 6.8 (6.7-8.2) g/dL Albumin 3.4 (3.2-5.5) g/dL Globulin 3.4 (2.1-4.2) g/dL Albumin/Globulin Ratio 1.0 (1.0-2.2) 02/22/17 Range/Units 05:34 WBC (4.8-10.8) x10^3/uL RBC (4.20-5.40) 10^6/uL Hgb (12.0-16.0) g/dL Hct (37.0-47.0) % MCV (81.0-99.0) fL MCH (27.0-31.0) pg MCHC (32.0-36.0) g/dL RDW (12.0-15.0) % Plt Count (130-450) 10^3/uL MPV (7.9-10.8) fL Neut # (1.5-6.6) 10^3/uL Lymph # (1.5-3.5) 10^3/uL Stanley # (0.0-1.0) 10^3/uL Eos # (0.0-0.7) 10^3/uL Baso # (0.0-0.1) 10^3/uL Absolute Nucleated RBC x10^3/uL Nucleated RBC % /100WBC Sodium (135-145) mmol/L Potassium 2.5 L* (3.5-5.0) mmol/L Chloride (101-111) mmol/L Carbon Dioxide (21-32) mmol/L Anion Gap (6-13) BUN (6-20) mg/dL Creatinine (0.4-1.0) mg/dL Estimated GFR (MDRD) (>89) Glucose (70-100) mg/dL Calcium (8.5-10.3) mg/dL Magnesium (1.7-2.8) mg/dL Total Bilirubin (0.2-1.0) mg/dL AST (10-42) IU/L ALT (10-60) IU/L Alkaline Phosphatase (42-121) IU/L B-Natriuretic Peptide (5-100) pg/mL Total Protein (6.7-8.2) g/dL Albumin (3.2-5.5) g/dL Globulin (2.1-4.2) g/dL Albumin/Globulin Ratio (1.0-2.2) Assessment/Plan - Problem List (1) CHF exacerbation Impression: (1) CHF exacerbation Impression: Pt report she feel better, vital stable, But elevated BNP from 889 to 1250 continue Lasix 40 PO bid I/O restriction daily weight daily lab test, vital, tele monitor Pt had ECHO two weeks, it reveals EF is 25-30%, elevated BNP to 889, worsening pulmonary edema IV lasix continue home meds tele, vital, monitor daily lab, BNP monitor (2) Shortness of breath Impression: great improved, Room air with 95% SO2, RR 16. continue current treatment with INH continue monitor closely CTA and CXR all reveals worsen pulmonary edema, secondary to CHF exacerbation continue Lasix continue INH, pulmocor, and Duoneb, RT treatment supplement of O2, wane off (3) Pneumonia Impression: no cough, no fever/chill, no SOB, great improved continue antibiotics CTA reveals right lower lobe airspace or infiltration use Levaquin instead of Cipro for both pneumonia and UTI continue monitor with lab, vital, tele (4) Hypokalemia Impression: resolved acute on chronic hypokalemia replacement of potassium recheck at 1100. it is normal now. asymptomatic, EKG PRN, now pt's HR is 92. (5) COPD (chronic obstructive pulmonary disease) Impression: stable, continue to treat treat with pulmicort and Duoneb, RT treatment O2 supplement, wane off gradually. Qualifiers: COPD type: COPD with acute lower respiratory infection Qualified Code(s): J44.0 - Chronic obstructive pulmonary disease with acute lower respiratory infection (6) Hx of gastroesophageal reflux (GERD) Impression: treat with carafate and Protonix (7) Anxiety Impression: resume home meds, effexor, alprazolam, amitriptyline. (8) insomnia restroil PRN (5) COPD (chronic obstructive pulmonary disease) Qualifiers: COPD type: COPD with acute lower respiratory infection Qualified Code(s): J44.0 - Chronic obstructive pulmonary disease with acute lower respiratory infection
[2017-02-23] MEDS: FUROSEMIDE 40 MG/4 ML VIAL IVP SCH (14:20)
[2017-02-23] MEDS: POLYETHYLENE GLYCOL 3350 17 GM PACKET PO SCH (14:29)
[2017-02-23] MEDS: levoFLOXacin 500 MG/100 ML 500 MG/100 ML BAG IV SCH (16:24)
[2017-02-23] MEDS: ACETAMINOPHEN 325 MG TABLET PO PRN (16:24)
[2017-02-23] MEDS: ALPRAZolam 0.25 MG TABLET PO SCH (20:12)
[2017-02-24] MEDS: SODIUM CHLORIDE FLUSH 0.9% 10 ML SYRINGE IVP SCH ×2 (05:28→13:56)
[2017-02-24] MEDS: FUROSEMIDE 40 MG/4 ML VIAL IVP SCH ×2 (05:28→13:56)
[2017-02-24] MEDS: SUCRALFATE 1 GM/10 ML UDC PO SCH ×3 (05:28→16:20)
[2017-02-24] MEDS: PANTOPRAZOLE 40 MG VIAL IVP SCH (05:28)
[2017-02-24] MEDS: SODIUM CHLORIDE FLUSH 0.9% 10 ML SYRINGE IVP PRN (05:28)
[2017-02-24 05:43] LABS: BASOPHILS # (AUTO) 0.1 10^3/uL (0.0-0.1); BASOPHILS % (AUTO) 1.2 %; EOSINOPHILS # (AUTO) 0.3 10^3/uL (0.0-0.7); EOSINOPHILS % (AUTO) 3.9 %; HCT - HEMATOCRIT 35.4 % (37.0-47.0); HGB - HEMOGLOBIN 11.7 g/dL (12.0-16.0); LYMPHOCYTES # (AUTO) 2.1 10^3/uL (1.5-3.5); LYMPHOCYTES % (AUTO) 30.7 %; MEAN CORPUSCULAR HEMOGLOBIN 30.5 pg (27.0-31.0); MEAN CORPUSCULAR VOLUME 92.6 fL (81.0-99.0); MEAN PLATELET VOLUME 8.3 fL (7.9-10.8); MONOCYTES # (AUTO) 0.6 10^3/uL (0.0-1.0); MONOCYTES % (AUTO) 9.3 %; NEUTROPHILS # (AUTO) 3.8 10^3/uL (1.5-6.6); NEUTROPHILS % (AUTO) 54.9 %; NUCLEATED RED BLOOD CELLS AUTO 0.1 /100WBC; RED BLOOD COUNT 3.82 10^6/uL (4.20-5.40); RED CELL DISTRIBUTION WIDTH 15.5 % (12.0-15.0); UNCORRECTED WHITE BLOOD COUNT 6.9 x10^3/uL; WHITE BLOOD COUNT 6.9 x10^3/uL (4.8-10.8)
[2017-02-24 05:59] LABS: BILIRUBIN,TOTAL 0.6 mg/dL (0.2-1.0); CALCIUM 9.2 mg/dL (8.5-10.3); CREATININE 0.7 mg/dL (0.4-1.0); POTASSIUM 4.3 mmol/L (3.5-5.0); TOTAL PROTEIN 6.9 g/dL (6.7-8.2)
[2017-02-24] MEDS: ENOXAPARIN 40 MG/0.4 ML SYRINGE SUBQ SCH (08:41)
[2017-02-24] MEDS: SACCHAROMYCES BOULARDII 250 MG CAPSULE PO SCH (08:41)
[2017-02-24] MEDS: AMITRIPTYLINE 25 MG TABLET PO SCH (08:41)
[2017-02-24] MEDS: CHOLECALCIFEROL 5,000 UNIT CAPSULE PO SCH (08:42)
[2017-02-24] MEDS: LOSARTAN 50 MG TABLET PO SCH (08:42)
[2017-02-24] MEDS: ASPIRIN CHEW 81 MG TABLET PO SCH (08:42)
[2017-02-24] MEDS: MULTIVITAMIN W/MINERALS TABLET PO SCH (08:42)
[2017-02-24] MEDS: MAGNESIUM OXIDE 400 MG TABLET PO SCH ×2 (08:42→16:20)
[2017-02-24] MEDS: SPIRONOLACTONE 25 MG TABLET PO SCH (08:42)
[2017-02-24] MEDS: CARVEDILOL 3.125 MG TABLET PO SCH (08:42)
[2017-02-24] MEDS: VENLAFAXINE ER 75 MG CAPSULE PO SCH (08:42)
[2017-02-24] MEDS: POLYETHYLENE GLYCOL 3350 17 GM PACKET PO SCH (08:43)
[2017-02-24] MEDS: BUDESONIDE 0.5 MG/2 ML NEB INH SCH (09:15)
[2017-02-24] MEDS: FORMOTEROL FUMARATE NEB 20 MCG/2 ML INH SCH (09:15)
[2017-02-24] MEDS: POTASSIUM CHLORIDE 20 MEQ TABLET PO SCH (10:23)
--- NOTE | 2017-02-24 13:17 | Discharge Plan ---
Discharge Plan Disposition: Home, Self Care Condition: Stable Prescriptions: Carvedilol [Coreg] 6.25 mg PO BID #60 tablet Furosemide 20 mg PO DAILY #60 tablet Losartan [Cozaar] 50 mg PO DAILY #30 tablet Spironolactone [Aldactone] 12.5 mg PO DAILY #30 tablet Diet: Low Sodium (3 gram) Activity Restrictions: No Restrictions Shower Restrictions: No Driving Restrictions: No Assistance Devices: Walker (as your heart failure medication start to work you will likely feel stronger and no longer need the walker) Weight Bearing: Full Weight Instruction Topics: Carvedilol tablets, Losartan tablets, Furosemide tablets, Spironolactone tablets, Heart Failure Meds Control, Heart Failure, Heart Failure Tracking Weight Additional Instructions or Follow Up instructions: you were admitted with shortness of breath due to exacerbation of heart failure An echocardiogram on 02/06/17 showed heart failure with a reduced ejection fraction (HFrEF) (meaning your left heart chamber muscle doesnt squeeze effficiently) . Ejection fraction (EF) is 25-30 % there is "global" dysfunction (no isolted wall not moving). It is not clear what the initial cause was. You do not have recent significant risk factors for coronary artery disease (cardiology will likely do a heart cath ) thyroid function appears normal. Long standing fast heart rate could possibly contribue. If you had long standing high blood pressure prior to this diagnosis that could be a contributer as well. It does not sound as though you had a viral illness recently (also a potential cause). Cardiology will continue the work up. You are being referred to the heart failure clinic do not take NSAIDS (aleve, ibuprofen, naproxen, motrim etc as these can cause sodium retention) You were started on medications to help stop the heart from "remodeling" inefficiently losartan 50 mg once daily (cardiology might choose to change this to another drug called an ARCHIE inhibitor 9e.g. lisinopril your PCP or cardiology may titrate this dose upward if your blood pressure allows coreg 6.25 mg twice daily (cardiology or your pcp will continue to titrate this dose if Heart rate, blood pressure allows) (Do not take tonights (10/3 dose of carvedilol) spironolactone 12.5 mg orally daily (a type of diuretic ) There is a new medication called Entresto for your type of heart failure that your retrofit installer might start, (but they may want to evaluate first how you do once the other medication doses are optimally titrated. Note ; Spironolactone and the losartan) can make you retain potassium; so you will need potassium level checked Thursday to be sure it is not too high with your home potassium HOld off (do not take) your oral potassium until level is rechecked on thursday. Level on 02/24 was 4.3 Weigh your self daily . If your weight is increasing by more than 2-3 lbs in a few days or 5 lbs in a week call PCP (or cardiology for direction) You have lasix (diuretic) to take if you retain fluid (possibly this may need to be a daily pill in the future) Call for instruction if your weight is up (you have 20 mg tablets to start; if you do not have to urinate within an hour (good volume, you may need to double the dose; Halle Christine will advise I will call PAPERHANGER SUPERVISOR Emmett tomorrow (not in today) re: trying to expedite the date of the cardiology consultation (currently scheduled for 03/26 at [facility] cardiolgy/ Paul valdes Follow-Up Care: [facility] [address] - CHF Classes No Smoking: If you smoke, Please STOP! Call for help. Follow-up with: Halle Christine PA-C [Primary Care Provider] -
[2017-02-24 15:39] VITALS: BP 98/62
--- NOTE | 2017-02-25 19:44 | DISCHARGE SUMMARY ---
DATE OF ADMISSION: 02/22/2017 DATE OF DISCHARGE: 02/24/2017 PRIMARY CARE PROVIDER: SKINNY Curtis, at [facility]. PRIMARY DISCHARGE DIAGNOSIS: Acute exacerbation of heart failure with a reduced ejection fraction. SECONDARY DIAGNOSES: 1. New diagnosis of heart failure with reduced EF. CONSULTATIONS: None. PROCEDURES: None. DIAGNOSTIC IMAGING STUDIES: CHEST X-RAY 02/22/2017, FINDINGS: 1. Moderate congestive heart failure pattern with progression from a prior exam done on 02/05/2017. 2. Right perihilar opacity probably confluent pulmonary edema. CT angiogram of the chest on 02/22/2017 showed new pulmonary edema, as seen on a chest x-ray, right lower lobe airspace opacification could represent atelectasis versus infection and no pulmonary embolus. Echocardiogram done on 02/06/2017 prior to this admission demonstrated an ejection fraction of 25% to 30% with global LV systolic dysfunction. DIAGNOSTIC LABORATORY STUDIES: On admission sodium 139, potassium 2.5, chloride 99, bicarbonate 28, BUN 9, creatinine 0.6, glucose 239, alkaline phosphatase 170 , BNP was 1255. On discharge, potassium resolved to 4.3. At discharge BNP was 578 and that does not reflect a final dose of Lasix. On admission, white count 10.0, hemoglobin 11.5, white count 34.4, platelets 398,000. On discharge white count 6.9, hemoglobin 11.7 and 35.4 hematocrit, and 390,000 platelets. A D- dimer was 546.9, INR 1.2. UA:rare bacteria, few squamous cells and a polymicrobial growth of 50-100,000 suggesting skin contamination. BRIEF HOSPITAL COURSE BY PROBLEMS: 1. Acute decompensation of heart failure with reduced EF (acute systolic heart failure). The patient is a 66-year-old female with a very recent diagnosis of heart failure with reduced EF as of an echocardiogram done 02/06/2017, with an EF of 25% to 30%. It is not clear why she had not yet started on the initial medication treatment with an ARCHIE inhibitor (or ARB,) and beta-destiny and possible diuretic; however, she came in with acute shortness of breath and fatigue and her BNP and chest x-ray and exam findings were consistent with exacerbation of CHF and volume overload. (She cannot comment on orthopnea as she usually sleeps elevated due to GERD.) She started treatment with an ARB. It is not clear why she was started on that as opposed to an ARCHIE inhibitor; however , she was able to be titrated up to a losartan dose thus far of 50 mg which her blood pressure tolerated. Also she was started on Coreg and is currently tolerating a dose of 6.25 mg twice daily. She also was initiated on spironolactone. She was diuresed over 2 days and on the day of discharge was perhaps just a touch dry with the diuresis at that point. She was able to ambulate in the hallways without oxygen and with mild fatigue. She is being discharged with the ARB, the beta destiny, and the spironolactone to take regularly along with a prescription for the Lasix, such so she had a diuretic available if she has weight gain at home and requires diuresis. Conceivably this may have to eventuallybe a regular part of her medication regimen, but hopefully not with the ARB, beta-destiny, and spironolactone. She is already scheduled to have a cardiology consult with [facility] via her PCP on 06/2016 and perhaps is an Entresto candidate, but she still requires titration of the ARB/BB if possible. She will require a complete workup for the etiology of congestive heart failure. Her troponins were negative. Her EKG was not suggestive of ischemic disease and she has very few risk factors for this. There was no recent viral illness. She does not have any significant valvular dysfunction, it does not appear that she has had a longstanding tachycardic dysrhythmia. There is no family history of any sort of amyloid disease or similar and again, she will need a full workup with Cardiology, likely to include a catheterization. Her course at the time of discharge was discussed with her primary care provider, and if needed the Cardiology service will require a referral to have a more expedited cardiology consultation prior to 06/2016. The patient was given the basic early education regarding congestive heart failure including the need for a restricted sodium diet and the need for daily weights. She is aware to weigh herself at home when she gets there which likely reflects perhaps a half kilogram below what her dry weight would be. On discharge with the diuresis, her systolic was just under 100 and she is advised to hold off on the p.m. dose of her Coreg and can resume that as prescribed on the next day. DISCHARGE MEDICATIONS: 1. Losartan 50 mg. 1 daily. This is new. 2. Coreg 6.25 mg twice daily. This is new. 3. Aspirin 81 mg. once daily. This is new. 4. Spironolactone 12.5 mg. 1 daily. This is new. 5. Lasix 20 mg once daily if needed for weight gain over 2-3 pounds daily. The patient is to call her primary provider if she is having weight gain. She is also aware that if she does not have response to 20 mg. that she may need to double that dose and that should be discussed with her provider. Otherwise, she will continue on her prior home medications which include. 1. Carafate 1 gram orally before sleep at bedtime. 2. Woman's Multivitamin 1 daily. 3. Amitriptyline 100 mg. 1 daily. 4. Omeprazole 40 mg twice daily. 5. Amanda root 550 mg. 1 daily. 6. Magnesium 250 mg. 1 daily. 7. Calcium citrate 600 mg. 1 daily. 8. Vitamin D 3000 units orally 1 daily. 9. Diphenoxylate 1, 4 times daily if needed for diarrhea. 10. Venlafaxine 225 mg. 1 daily at night. 11. Vitamin B complex 1 daily. 12. ProAir HFA inhaler 1 inhalation every 6 hours if needed for wheezing. 13. Advair Diskus 250/50, 1 inhalation twice daily. The patient is advised to hold off on her home dose of potassium until her potassium level is checked this 02/27/2017. She was given paperwork to have that done since she is now both an ARB and spironolactone. PHYSICAL EXAMINATION ON THE DAY OF DISCHARGE: VITAL SIGNS: She is afebrile 36.7, heart rate 82, blood pressure 98/62, respiratory rate 16-24, room air oxygenation is 97% on room air. Of note, that 24 was after ambulating. She had a respiratory rate otherwise of 16. The patient is a very thin build female who appears stated age. She is resting comfortably in bed. HEAD, EARS, EYES, NOSE AND THROAT: She is normocephalic, atraumatic. Her neck is notable for no appreciable jugular venous distention. She has unlabored respirations at rest. CHEST: Clear to auscultation. There are no crackles. HEART: Regular S1, S2 with no appreciable murmur or extra sounds. CARDIAC: Periphery is warm and dry. There is no appreciable lower extremity edema, although at the time of admission, she did have 1+ pitting bilaterally prior to diuresis. ABDOMEN: Soft and flat, nontender with positive bowel sounds. No appreciable hepatojugular reflex and no appreciable organomegaly. EXTREMITIES that are warm and dry with no edema at the time of discharge. She was evaluated by Physical Therapy and they recommended a walker an assistive device until her activity tolerance improves with the treatment of her congestive heart failure. DISCHARGE INSTRUCTIONS: Discharge instructions discussed with Halle Emmett, that if she needs a more expedited referral to Cardiology. JOB #: [id number] EXT JOB #:[id number] CORRINE
== END 2017-02-24 17:00 | disposition home or self-care (01) | DRG 293 ==
LOC: EDUNIT# → ED 02:26 → SUPCPDRO 02:26 → MS2 04:35
PROVIDERS: ATTEND Nurse Practitioner
DX: I50.9 Heart failure, unspecified (principal); I50.21 Acute systolic (congestive) heart failure; E87.6 Hypokalemia; E83.42 Hypomagnesemia; J44.9 Chronic obstructive pulmonary disease, unspecified; K21.9 Gastro-esophageal reflux disease without esophagitis; F32.9 Major depressive disorder, single episode, unspecified; F41.9 Anxiety disorder, unspecified; R07.81 Pleurodynia; Z79.51 Long term (current) use of inhaled steroids; Z79.899 Other long term (current) drug therapy; Z87.891 Personal history of nicotine dependence
CPT/HCPCS: 36415; 71010; 71275; 80048; 80053; 81001; 81003; 83690; 83735; 83880; 84132; 84443; 84484; 85025; 85379; 85610; 85730; 87086; 93005; 94640; 99284; 99291

== ENCOUNTER 2017-02-27 13:03 | Outpatient (CLI) | payer MEDICARE, OTHER | END 2017-02-27 13:04 | disposition home or self-care (01) | LOC: LAB 13:03 | PROVIDERS: ATTEND Physician Assistant | DX: E87.6 Hypokalemia (principal) | CPT/HCPCS: 36415; 84132 ==